=== PATIENT | female | born 1980 | race Two or more races ===

== ENCOUNTER 2024-09-04 01:18 | Emergency (ER) | payer BC, OTHER ==
[~2024-09-04] VITALS: Ht 167.6 cm; Wt 88.6 kg
--- NOTE | 2024-09-04 02:07 | ED.PDOC ---
Back pain HPI HPI Comments Pt presents to the ER with C/O back pain. Pt reports lower back pain that radiates to pelvic area. Pt denies trauma/ injury to site or any urinary symptoms. Denies numbness, weakness, saddle paresthesia loss of bowel bladder control. Time Seen by MD: 01:42 Reviewed Notes: Nurses Notes, Medications, Allergies Allergies: Coded Allergies: NO KNOWN ALLERGIES (Unverified , 09/04/24) Information Source: Patient Past Medical History PAST MEDICAL HISTORY: Denies Surgical History: Denies all surgeries LABORATORY CHEMIST History: No Pertinent LABORATORY CHEMIST History Family History Family History: Reviewed,noncontributory to illness Social History Alcohol: Denies ETOH Use Drugs: Denies Drug Use Constitutional: denies: chills, diaphoresis, fatigue, fever, malaise, sweats, weakness, others EENTM: denies: blurred vision, double vision, ear bleeding, ear discharge, ear drainage, ear pain, ear ringing, eye pain, eye redness, hearing loss, mouth pain, mouth swelling, nasal discharge, nose bleeding, nose congestion, nose pain, photophobia, tearing, throat pain, throat swelling, voice changes, others Respiratory: denies: cough, hemoptysis, orthopnea, SOB at rest, shortness of breath, SOB with excertion, stridor, wheezing, others Cardiovascular: denies: chest pain, dizzy spells, diaphoresis, Dyspnea on exertion, edema, irregular heart beat, left arm pain, lightheadedness, palpitations, PND, syncope, others Gastrointestinal: denies: abdomen distended, abdominal pain, blood streaked bowels, constipated, diarrhea, dysphagia, difficulty swallowing, hematemesis, melena, nausea, poor appetite, poor fluid intake, rectal bleeding, rectal pain, vomiting, others Genitourinary: denies: abnormal vagina bleeding, burning, dyspareunia, dysuria, flank pain, frequency, hematuria, incontinence, pain, , vagina discharge, urgency, others Neurological: denies: dizziness, fainting, headache, left sided numbness, left sided weakness, numbness, paresthesia, pre-existing deficit, right sided numbness, right sided weakness, seizure, speech problems, tingling, tremors, weakness, others Musculoskeletal: reports: back pain; denies: gout, joint pain, joint swelling, muscle pain, muscle stiffness, neck pain, others Integumetry: denies: bruises, change in color, change in hair/nails, dryness, laceration, lesions, lumps, rash, wounds, others Allergic/Immunocompromised: denies: Difficulty Healing, Frequent Infections, Hives, Itching, others Hematologic/Lymphatic: denies: anemia, blood clots, easy bleeding, easy bruising, swollen glands, others Endocrine: denies: excessive hunger, excessive sweating, excessive thirst, excessive urination, flushing, intolerance to cold, intolerance to heat, unexplained weight gain, unexplained weight loss, others Psychiatric: denies: anxiety, bipolar disorder, depression, hopeless, panic disorder, schizophrenia, sleepless, suicidal, others Physical Exam General Appearance: No Apparent Distress, Normal HEENT: Pharynx Normal Neck: Full Range of Motion, Non-Tender Respiratory: Lungs Clear, No Respiratory Distress, Normal Breath Sounds Cardiovascular: No Edema, No Murmur, No Gallop, Normal Peripheral Pulses, Regular Rate/Rhythm Breast Exam: Deferred Gastrointestinal: No Organomegaly, Non Tender, No Pulsatile Mass, Normal Bowel Sounds, Soft, Other (Negative CVA tenderness) Genitalia: Deferred Pelvic: Deferred Rectal: Deferred Extremities: No calf tenderness, Normal capillary refill, Normal inspection, Normal range of motion, Non-tender, No pedal edema Musculoskeletal : Location: Bilateral Extremity Location: Back (Moderate tenderness on palpation L1 through L3 lumbar spine without crepitus or step-offs. Negative straight leg raise bila teral strength sensory motion intact negative saddle anesthesia negative footdrop positive pedal pulses) Apperance: Normal Neurologic: Alert, No Motor Deficits, Normal Affect, Normal Mood, No Sensory Deficits Cerebellar Function: Normal Reflexes: Normal Skin: Dry, Normal Color, Warm Lymphatic: No Adenopathy Was a procedure done? Was a procedure done?: No Back Pain Differential Dx Differential Diagnosis: Fracture, Musculoskeletal Pain, Strain X-Ray, Labs, Meds, VS Vital Signs Date Time Temp Pulse Resp B/P (MAP) Pulse Ox O2 Delivery O2 Flow Rate FiO2 09/04/24 06:36 79 19 119/72 (88) 100 09/04/24 03:56 99 Room Air* 0 21 09/04/24 03:29 97.8 90 17 113/75 (88) 97 97.8 09/04/24 02:08 99.6 97 16 151/92 111 93 99.6 Lab Test 09/04/24 02:06 Range/Units Urine Color Yellow Yellow Urine Clarity Turbid H Clear Urine pH 6.0 5.0-9.0 Urine Specific [place] 1.031 1.001-1.035 Urine Protein Trace H Negative Urine Ketones Trace Negative Urine Blood 2+ H Negative /uL Urine Nitrite Negative Negative Urine Bilirubin Negative Negative Urine Urobilinogen 3 H Negative mg/dL Urine Leukocyte Esterase 1+ Negative /uL Urine RBC 7 0 - 4 /hpf Urine Microscopic WBC 4 0-5 /HPF Urine Squamous Epithelial Cells Mod <5 /hpf Urine Bacteria Few H None Seen /hpf Urine Mucus Few None Seen Urine Glucose Normal Normal mg/dL X-Ray, Labs, Meds, VS Comment CT lumbar spine IMPRESSION: 1. No definite CT evidence of acute fracture or dislocation of the bony lumbar spine. 2. Lobulated uterus with moderate right adnexal enlargement. Dedicated pelvic ultrasound may be of benefit. Pelvic ultrasound ordered, podiatric technician paged, noted abnormal findings on CT lumbar spine above. Time of 1ST Reevaluation: 02:06 Reevaluation 1ST: Unchanged Patient Education/Counseling: Diagnosis, Treatment, Prognosis, Need For Follow Up Family Education/Counseling: Diagnosis, Treatment, Prognosis, Need For Follow Up Departure 1 Departure Time of Disposition: 05:55 Impression: Primary Impression: Leiomyoma of uterus Qualified Codes: D25.9 - Leiomyoma of uterus, unspecified Additional Impression: Strain of lumbar region Qualified Codes: S39.012A - Strain of muscle, fascia and tendon of lower back, initial encounter Disposition: HOME / SELF CARE / HOMELESS Condition: Stable Discharged With: Significant Other Critical Care Note Critical Care Time?: No Stability Stability form required: EMILIA Ferguson [employer] Sep 04, 2024 02:07
[2024-09-04 02:29] LABS: Urine Bacteria FEW /hpf (None Seen); Urine Blood 2+ /uL (Negative); Urine Clarity Turbid (Clear); Urine Color Yellow (Yellow); Urine Mucus FEW (None Seen); Urine Protein, UAD TRACE (Negative); Urine Specific Gravity 1.031 (1.001-1.035); Urine Squamous Epithelial Cell MOD /hpf (<5); Urine Urobilinogen 3 mg/dL (Negative); Urine WBC 4 /HPF (0-5)
--- NOTE | 2024-09-04 03:18 | DVH ---
EXAM: CT LS SPINE WO CONTRAST HISTORY: Left-sided radiculopathy COMPARISON: None CTDIvol 28.67 mGy, DLP 1024.50 mGy*cm. TECHNIQUE: Multiple axial CT images of the spine were obtained using bone algorithm. Axial and coron al reformatting was done. Bone and soft tissue windows were reviewed. FINDINGS: No CT evidence of definite acute fracture, spinal dislocation, or significant appearing acute subluxa tion is seen. The visualized paraspinal soft tissues are grossly unremarkable. Evaluation of the incidentally imaged unopacified abdominopelvic organs reveals a moderately lobulate d appearing uterus with enlargement extending into the right adnexal region. IMPRESSION: 1. No definite CT evidence of acute fracture or dislocation of the bony lumbar spine. 2. Lobulated uterus with moderate right adnexal enlargement. Dedicated pelvic ultrasound may be of be nefit.
[2024-09-04 03:29] VITALS: TEMP 97.8
[2024-09-04] MEDS: HYDROcodone-ACET 5/325MG TAB PO ONE (03:49)
[2024-09-04] MEDS: KETOROLAC TROMETH 60MG/2ML VIAL IM ONE (03:49)
[2024-09-04 03:56] VITALS: O2SAT 99
--- NOTE | 2024-09-04 05:43 | DVH ---
INDICATION: abnormal findings on CT Lumbar spine TECHNIQUE: Multiple real-time grayscale transabdominal sonographic images along with color and duplex Doppler of the uterus and ovaries were obtained. COMPARISON: None FINDINGS: The uterus measures 8.0 x 6.5 x 5.0 cm. The uterus is moderately lobulated in its morpholog y with at least 1 discrete hypoechoic structure within the uterine body measuring 1.6 x 1.4 x 1.2 cm, likely representing a leiomyoma. The endometrial stripe measures 0.8 cm. Small volume pelvic cul-de-sac free fluid noted. Right ovary measures 6.8 x 5.2 x 4.7 cm with normal Doppler color flow and a hyperechoic structure wi thin the right adnexal region measuring 4.1 x 3.5 x 3.2 cm exhibits peripheral vascularity. Left ovary measures 2.6 x 2.0 x 1.8 cm with normal Doppler color flow. IMPRESSION: 1. Lobulated uterine morphology and suspected leiomyoma. 2. Probable right ovarian cyst.
[2024-09-04 06:36] VITALS: BP 119/72; PULSE 79; RESP 19; O2SAT 100
== END 2024-09-04 06:40 | disposition home or self-care (01) ==
LOC: ER 01:18
DX: D25.9 Leiomyoma of uterus, unspecified (principal); S39.012A Strain of muscle, fascia and tendon of lower back, initial encounter; X58.XXXA Exposure to other specified factors, initial encounter; Y93.89 Activity, other specified; Y92.89 Other specified places as the place of occurrence of the external cause; Y99.8 Other external cause status
CPT/HCPCS: 72131; 76856; 81001; 96372; 99285; J1885